=== PATIENT | male | born 1985 | race Hispanic/Latino ===

== ENCOUNTER 2022-09-07 10:49 | Emergency (ER) | payer OTHER ==
[~2022-09-07] VITALS: Ht 188 cm; Wt 72.6 kg
[2022-09-07] MEDS ORDERED: SODIUM CHLORIDE 0.9% 1000ML 1,000 ML IV STA (11:45)
[2022-09-07] MEDS ORDERED: LORAZEPAM INJ 2 MG/ML VIAL IV ONE (11:45)
[2022-09-07] MEDS ORDERED: DIAZEPAM INJ 5 MG/ML 2 ML IV ONE (12:00)
[2022-09-07 12:30] LABS: BASOPHILS # (AUTO) 0.1 (0.0-0.1); EOSINOPHILS # (AUTO) 0.1 (0.0-0.4); EOSINOPHILS % 1.4 % (0.0-6.0); HEMATOCRIT 37.6 % (38.2-49.6); HEMOGLOBIN 12.9 g/dL (14.0-18.0); LYMPHOCYTES # (AUTO) 2.1 (1.0-3.2); LYMPHOCYTES % 29.1 % (18.0-39.1); MEAN CORPUSCULAR HEMOGLOBIN 31.5 pg (28-32); MEAN CORPUSCULAR HGB CONC 34.3 g/dL (31-35); MEAN CORPUSCULAR VOLUME 91.7 fL (81-99); MONOCYTES # (AUTO) 0.4 (0.2-0.8); MONOCYTES % 5.9 % (4.4-11.3); NEUTROPHILS # (AUTO) 4.5 (2.1-6.9); NEUTROPHILS % 62.3 % (38.7-80.0); PLATELET COUNT 336 x10e3/uL (140-360); RED CELL DISTRIBUTION WIDTH 11.8 % (11.7-14.4)
[2022-09-07 12:48] LABS: ANION GAP 18.4 mmol/L (8-16); BLOOD UREA NITROGEN 9 mg/dL (7-26); BUN/CREATININE RATIO 12 (6-25); CALCIUM 9.5 mg/dL (8.4-10.2); CARBON DIOXIDE 23 mmol/L (22-29); CHLORIDE 101 mmol/L (98-107); CREATINE KINASE 100 IU/L (30-200); CREATININE, SERUM 0.74 mg/dL (0.72-1.25); GLUCOSE 104 mg/dL (74-118); POTASSIUM 3.4 mmol/L (3.5-5.1); SODIUM 139 mmol/L (136-145)
[2022-09-07] MEDS ORDERED: DIAZEPAM 5 MG TAB PO ONE (14:00)
[2022-09-07 14:22] VITALS: BP 134/94
== END 2022-09-07 14:26 | disposition home or self-care (01) ==
LOC: ER 11:04
DX: F41.9 Anxiety disorder, unspecified (principal); R94.31 Abnormal electrocardiogram [ECG] [EKG]
CPT/HCPCS: 36415; 80048; 82550; 82553; 84443; 84484; 85025; 93005; 99283; J3360; J7030

== ENCOUNTER 2024-07-22 23:58 | Emergency (ER) | payer SELFPAY ==
[~2024-07-22] VITALS: Ht 188 cm; Wt 74.4 kg
[2024-07-23 00:25] VITALS: PULSE 82; RESP 17; TEMP 98.1
[2024-07-23 01:06] LABS: BASOPHILS # (AUTO) 0.1 (0.0-0.1); EOSINOPHILS # (AUTO) 0.1 (0.0-0.4); EOSINOPHILS % 0.8 % (0.0-6.0); HEMATOCRIT 41.7 % (38.2-49.6); HEMOGLOBIN 13.3 g/dL (14.0-18.0); LYMPHOCYTES # (AUTO) 2.4 (1.0-3.2); LYMPHOCYTES % 28.1 % (18.0-39.1); MEAN CORPUSCULAR HEMOGLOBIN 33.2 pg (28-32); MEAN CORPUSCULAR HGB CONC 31.9 g/dL (31-35); MONOCYTES # (AUTO) 0.6 (0.2-0.8); MONOCYTES % 7.2 % (4.4-11.3); NEUTROPHILS # (AUTO) 5.2 (2.1-6.9); NEUTROPHILS % 61.9 % (38.7-80.0); PLATELET COUNT 254 x10e3/uL (140-360); RED BLOOD COUNT 4.01 x10e6/uL (4.3-5.7); RED CELL DISTRIBUTION WIDTH 13.9 % (11.7-14.4); WHITE BLOOD COUNT 8.37 x10e3/uL (4.8-10.8)
[2024-07-23 01:22] LABS: ALANINE AMINOTRANSFERASE 160 IU/L (0-55); ALBUMIN 3.5 g/dL (3.5-5.0); ALBUMIN/GLOBULIN RATIO 0.7 (0.8-2.0); ALKALINE PHOSPHATASE 272 IU/L (40-150); ANION GAP 19.7 mmol/L (8-16); BILIRUBIN,TOTAL 5.2 mg/dL (0.2-1.2); BLOOD UREA NITROGEN 42 mg/dL (7-26); BUN/CREATININE RATIO 19 (6-25); CALCIUM 9.8 mg/dL (8.4-10.2); CARBON DIOXIDE 19 mmol/L (22-29); CHLORIDE 101 mmol/L (98-107); CREATINE KINASE 30 IU/L (30-200); CREATININE, SERUM 2.16 mg/dL (0.72-1.25); EST GLOMERULAR FILTRATION RATE 38 ML/MIN (>=60); GLUCOSE 102 mg/dL (74-118); POTASSIUM 4.7 mmol/L (3.5-5.1); SODIUM 135 mmol/L (136-145); TOTAL PROTEIN 8.4 g/dL (6.5-8.1)
[2024-07-23] MEDS: SODIUM CHLORIDE 0.9% 1000ML 1,000 ML IV STA (01:23)
[2024-07-23] MEDS ORDERED: IOPAMIDOL 370 MG/ML 100 ML INFUS..BTL INJ ONE (01:40)
[2024-07-23 02:52] LABS: AMPHETAMINES SCREEN,URINE NEGATIVE (NEGATIVE); BENZODIAZEPINES SCREEN,URINE POSITIVE (NEGATIVE); CANNABINOIDS SCREEN,URINE NEGATIVE (NEGATIVE); COCAINE SCREEN,URINE NEGATIVE (NEGATIVE); METHADONE SCREEN, URINE NEGATIVE (NEGATIVE); OPIATES SCREEN,URINE NEGATIVE (NEGATIVE); PHENCYCLIDINE SCREEN,URINE NEGATIVE (NEGATIVE)
[2024-07-23 03:24] LABS: TROPONIN I < 0.001 ng/mL (0-0.300)
[2024-07-23] MEDS ORDERED: CHLORDIAZEPOXID10 MG PO (03:55)
[2024-07-23 04:08] VITALS: BP 103/67; O2SAT 100
== END 2024-07-23 04:11 | disposition home or self-care (01) ==
LOC: ER 07-23 00:02
DX: R53.1 Weakness (principal); K70.10 Alcoholic hepatitis without ascites; N28.9 Disorder of kidney and ureter, unspecified; K57.90 Diverticulosis of intestine, part unspecified, without perforation or abscess without bleeding; K76.0 Fatty (change of) liver, not elsewhere classified; R16.0 Hepatomegaly, not elsewhere classified; E78.5 Hyperlipidemia, unspecified; E03.9 Hypothyroidism, unspecified; F41.9 Anxiety disorder, unspecified; R94.31 Abnormal electrocardiogram [ECG] [EKG]
CPT/HCPCS: 36415; 74177; 80053; 80307; 80320; 82140; 82550; 84484; 85025; 93005; 99284; J7030; Q9967